=== PATIENT | female | born 1970 | race Caucasian/White ===

== ENCOUNTER → 2022-04-10 | Day surgery (SDC) | payer OTHER ==
[~2022-04-10] VITALS: Ht 149.9 cm; Wt 70.1 kg
[~2022-04-10] MED LIST: EMGALITY120 MG/1 M SC; NP THYROID30 MG PO; PRAVACHOL20 MG PO; PREMARIN0.3 MG PO; PROZAC20 MG PO; TOPROL XL25 MG PO; ZOMIG5 M1 PO
== END | disposition home or self-care (01) ==
LOC: FAS 08:18
DX: Z12.11 Encounter for screening for malignant neoplasm of colon (principal); G43.909 Migraine, unspecified, not intractable, without status migrainosus; Z86.010 Personal history of colon polyps; Z80.0 Family history of malignant neoplasm of digestive organs
CPT/HCPCS: J2704; J7120